=== PATIENT | male | born 1990 | race Caucasian/White ===

== ENCOUNTER 2021-11-09 01:12 | Emergency (ER) | payer MEDICAID ==
[~2021-11-09] VITALS: Ht 175.3 cm; Wt 74.8 kg
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
--- NOTE | 2021-11-09 01:50 | NUR ---
PT REFUSED URINE TEST. AWARE.
--- NOTE | 2021-11-09 02:36 | NUR ---
followed up with [facility] regarding imaging read
--- NOTE | 2021-11-09 02:57 | NUR ---
ULTRASOIUND TECH AT BEDSIDE
[2021-11-09 05:14] VITALS: BP 146/82
--- NOTE | 2021-11-09 05:14 | NUR ---
Patient discharged to home in stable condition. Written and verbal after care instructions given. Patient verbalizes understanding of instruction.
== END 2021-11-09 05:14 | disposition home or self-care (01) ==
LOC: ER 01:21
DX: S13.4XXA Sprain of ligaments of cervical spine, initial encounter (principal); S40.011A Contusion of right shoulder, initial encounter; S30.1XXA Contusion of abdominal wall, initial encounter; S09.90XA Unspecified injury of head, initial encounter; V89.2XXA Person injured in unspecified motor-vehicle accident, traffic, initial encounter; Y93.89 Activity, other specified; Y92.89 Other specified places as the place of occurrence of the external cause; Y99.8 Other external cause status
CPT/HCPCS: 70450-TC; 72125-TC; 73010-TC; 76700-TC